=== PATIENT | female | born 1980 | race Hispanic/Latino ===

== ENCOUNTER 2021-03-04 18:19 | Emergency (ER) | payer OTHER ==
[~2021-03-04] VITALS: Ht 157.5 cm; Wt 96.2 kg
[2021-03-04] MEDS ORDERED: IBUPROFEN 800 MG TAB PO ONE (19:00)
[2021-03-04] MEDS ORDERED: ACETAMINOPHEN 500 MG TABLET PO ONE (19:00)
[2021-03-04 19:15] VITALS: BP 126/72
[2021-03-04] MEDS ORDERED: IBUPROFEN 400 MG TABLET ONE (19:15)
[2021-03-04] MEDS ORDERED: ACETAMINOPHEN 500 MG TABLET ONE (19:15)
[2021-03-04] MEDS ORDERED: LISI40TA9 PO (19:46)
[2021-03-04] MEDS ORDERED: GABA-529 PO (19:46)
[2021-03-04] MEDS ORDERED: AMLO-257 PO (19:46)
[2021-03-04] MEDS ORDERED: FURO20TA4 PO (19:46)
== END 2021-03-04 19:59 | disposition home or self-care (01) ==
LOC: EDH 18:19
DX: S00.03XA Contusion of scalp, initial encounter (principal); X58.XXXA Exposure to other specified factors, initial encounter; Y93.89 Activity, other specified; Y92.89 Other specified places as the place of occurrence of the external cause; Y99.8 Other external cause status

== ENCOUNTER 2021-12-26 19:44 | Emergency (ER) | payer OTHER ==
[~2021-12-26] VITALS: Ht 157.5 cm; Wt 104.3 kg
[2021-12-26 19:46] VITALS: BP 119/46
[2021-12-26 20:12] LABS: APPEARANCE,URINE CLOUDY (CLEAR); BILIRUBIN,URINE NEGATIVE (NEGATIVE); COLOR,URINE LIGHT-YELLOW (YELLOW); GLUCOSE, URINE (UA) NEGATIVE (NEGATIVE); KETONES,URINE NEGATIVE (NEGATIVE); LEUKOCYTE ESTERASE ,URINE 250 Leu/uL (NEGATIVE); NITRATE,URINE NEGATIVE (NEGATIVE); OCCULT BLOOD,URINE LARGE (NEGATIVE); PROTEIN,URINE NEGATIVE (NEGATIVE); UROBILINOGEN,URINE 0.2 mg/dL (0.2-1.0)
[2021-12-26 20:15] LABS: BASOPHILS % (AUTO) 0.5 % (0.0-5.0); EOSINOPHILS % (AUTO) 8.3 % (0.0-8.0); HEMATOCRIT 40.9 % (36-48); LYMPHOCYTES % (AUTO) 27.3 % (21.0-51.0); MEAN CORPUSCULAR HEMOGLOBIN 27.5 pg (27.0-33.0); MEAN CORPUSCULAR HGB CONC 32.5 g/dL (32.0-36.0); MEAN CORPUSCULAR VOLUME 84.5 fL (79-99); MONOCYTES % (AUTO) 7.4 % (3.0-13.0); NEUTROPHILS % (AUTO) 56.3 % (40.0-77.0); PLATELET COUNT (AUTO) 418 K/uL (130-400); RED BLOOD CELL COUNT(AUTO) 4.84 MIL/uL (4.00-5.50); RED CELL DISTRIBUTION WIDTH 13.7 % (11.0-15.5); WHITE BLOOD COUNT (AUTO) 10.3 K/uL (4.8-10.8)
[2021-12-26 20:17] LABS: BACTERIA,URINE RARE /HPF (None Seen); HYALINE CASTS, URINE 0-1 /LPF (0-1 /LPF); MUCUS,URINE RARE LPF (None Seen); RBC,URINE 26-50 /HPF (0-1); SQUAMOUS EPITHELIAL CELL,UR MOD /HPF (0-2)
[2021-12-26 20:25] LABS: CREATININE 0.9 mg/dL (0.5-1.5); POTASSIUM 4.1 mmol/L (3.5-5.1)
[2021-12-26] MEDS ORDERED: CEPH500B PO (21:56)
[2021-12-26] MEDS ORDERED: IBUP-2070 PO (21:56)
[2021-12-26] MEDS ORDERED: PHEN-846 PO (21:56)
[2021-12-26] MEDS ORDERED: PHENAZOPYRIDINE HCL 200 MG TABLET PO ONE (22:00)
[2021-12-26] MEDS ORDERED: CEFTRIAXONE 1G VIAL IM ONE (22:00)
== END 2021-12-26 22:09 | disposition home or self-care (01) ==
LOC: EDH 19:44
DX: J06.9 Acute upper respiratory infection, unspecified (principal); N39.0 Urinary tract infection, site not specified; Z20.822 Contact with and (suspected) exposure to COVID-19; Z88.5 Allergy status to narcotic agent; Z90.49 Acquired absence of other specified parts of digestive tract
CPT/HCPCS: 99283; 87635; 80048; 85025; 87088; 87880; 87804 ×2; 81001; 36415; 96372; C9803; J0696

== ENCOUNTER 2022-02-05 14:33 | Emergency (ER) | payer OTHER ==
[~2022-02-05] VITALS: Ht 157.5 cm; Wt 104.3 kg
[~2022-02-05 14:33] MED LIST: CEPH500B PO; IBUP-2070 PO; PHEN-846 PO
[2022-02-05 14:37] VITALS: BP 135/81
[2022-02-05] MEDS ORDERED: FEXO180T94 PO (19:05)
[2022-02-05] MEDS ORDERED: FLUT15.845 NS (19:05)
== END 2022-02-05 19:22 | disposition home or self-care (01) ==
LOC: EDH 14:33
DX: J30.9 Allergic rhinitis, unspecified (principal); Z20.822 Contact with and (suspected) exposure to COVID-19; Z88.6 Allergy status to analgesic agent; Z79.899 Other long term (current) drug therapy; Z90.89 Acquired absence of other organs; Z90.49 Acquired absence of other specified parts of digestive tract; Z98.890 Other specified postprocedural states
CPT/HCPCS: 99283; 87635; 87880; 87804 ×2; C9803

== ENCOUNTER 2024-10-05 11:49 | Emergency (ER) | payer SELFPAY ==
[~2024-10-05] VITALS: Ht 157.5 cm; Wt 101.6 kg
[~2024-10-05 11:49] MED LIST changes: +FEXO180T94 PO; +FLUT15.845 NS
--- NOTE | 2024-10-05 11:56 | ERN ---
ED Note History of Present Illness Stated Complaint: FALL Chief Complaint: Mechanical Fall Time Seen by MD: 11:50 Dictation: PATIENT IS A 44-YEAR-OLD FEMALE COMING IN TODAY WITH MIDLINE POSTERIOR NECK PAIN WORSE WHEN SHE ROTATES HER HEAD ONSET AFTER A SLIP FALL AND STRIKING THE BACK OF HER NECK ON A WOULD STEP. ADDITIONALLY SHE IS COMPLAINING OF LUMBAR PAIN DIFFUSE, NO MIDLINE SPINE PAIN THERE. NEUROVASCULAR CMS INTACT TO ALL EXTREMITIES. SHE HAS NOT TAKEN ANYTHING PRIOR TO ARRIVAL FOR PAIN. SHE IS NOT ON ANY BLOOD THINNERS NO LOC NO PRATER OR RACCOON SIGN. C-COLLAR WAS PLACED IN TRIAGE. NEUROVASCULAR CMS INTACT TO ALL EXTREMITIES POST PLACEMENT. Allergies: Coded Allergies: hydrocodone (Unverified Allergy, Unknown, 03/04/21) Home Meds Active Scripts Fluticasone Propionate (Fluticasone Propionate) 15.8 Ml [place].susp, 15.8 ML NS BID for allergic for 30 Days, #1 BOTTLE Prov:ANANDA BYRNE 02/05/22 Fexofenadine HCl (Maite Allergy) 180 Mg Tablet, 180 MG PO DAILY for allergic for 30 Days, #30 TAB Prov:ANANDA BYRNE 02/05/22 Ibuprofen (Ibuprofen) 600 Mg Tablet, 600 MG PO Q6H PRN for PAIN, #15 TAB Prov:FITTINGDIONIP 12/26/21 Phenazopyridine HCl (Pyridium) 100 Mg Tab, 100 MG PO TID, #6 TAB Prov:DIONI MANP 12/26/21 Cephalexin Monohydrate (Keflex) 500 Mg Cap, 500 MG PO QID for 7 Days, #28 CAP Prov:DIONI MANP 12/26/21 Past Medical History Past Medical History: No Pertinent History Surgical History: Appendectomy, Cholecystectomy, Family History: Negative Social History: Negative History: Not Applicable RN Note Reviewed/Agreed w/PFSH: Yes Review of System Dictation CONSTITUTIONAL: NEGATIVE EXCEPT FOR HPI HEAD/FACE: NEGATIVE EXCEPT FOR HPI EENT: NEGATIVE EXCEPT FOR HPI RESPIRATORY: NEGATIVE EXCEPT FOR HPI GASTROINTESTINAL/ABDOMINAL: NEGATIVE EXCEPT FOR HPI GENITOURINARY: NEGATIVE EXCEPT FOR HPI MUSCULOSKELETAL: NEGATIVE EXCEPT FOR HPI MIDLINE POSTERIOR CERVICAL SPINE AND DIFFUSE LUMBAR TENDERNESS. INTEGUMENTARY: NEGATIVE EXCEPT FOR HPI NEUROLOGICAL/PSYCH: NEGATIVE EXCEPT FOR HPI HEMATOLOGIC/LYMPHATIC: NEGATIVE EXCEPT FOR HPI ALL SYSTEMS NEGATIVE, EXCEPT NOTED ABOVE. 13 POINT REVIEW OF SYSTEMS ASSESSED AND ALL NEGATIVE EXCEPT FOR ABOVE. Initial Vital Sign VS Vital Signs Date Time Temp Pulse Resp B/P (MAP) Pulse Ox O2 Delivery O2 Flow Rate FiO2 10/05/24 11:50 97.2 88 18 108/81 99 Room Air 0 10/05/24 13:02 21 Physical Exam Dictation VITAL SIGNS REVIEWED GENERAL APPEARANCE: ALERT, ORIENTED X 3, MODERATE ACUTE DISTRESS, WELL DEVELOPED , NOURISHED. OBESE HEAD AND FACE: NON-TRAUMATIC. EYES: PERRL, PINK CONJUNCTIVAS, EYELID NO TRAUMA, ANTERIOR CHAMBER WITH ARCUS SENILIS. EARS: PINNAS INTACT AND NO SIGNS OF TRAUMA OR ERYTHEMA EAR CANALS CLEAR AND NO DISCHARGE TM NO ERYTHEMA NOSE: NO DISCHARGE, NO BLEEDING. OROPHARYNX: MOUTH NORMAL, TONGUE PINK, PHARYNX CLEAR,NO ERYTHEMA, TONSILS NO EXUDATES, NO ABSCESSES NOTED, MUCOUS MEMBRANE MOIST NECK: SUPPLE, NON-TENDER, NO THYROMEGALY, NO MASSES, NO JVD, NO BRUITS BREAST:DEFERRED CHEST:NO TENDERNESS, NO CREPITUS, NO PARADOXICAL MOVEMENT, NO RETRACTIONS LUNGS:CLEAR, WELL-VENTILATED, SYMMETRIC, NO RALES, NO WHEEZING, NO RHONCHI, NO STRIDOR, GOOD BREATH SOUNDS BILATERALLY HEART: REGULAR RATE, REGULAR RHYTHM, NO MURMUR, NO GALLOPS VASCULAR: NO PERIPHERAL EDEMA, ABDOMEN: SOFT, POSITIVE BOWEL SOUNDS, NONDISTENDED, NO GUARDING, NONTENDER, NO REBOUND, NO MASSES NO HEPATOMEGALY, NO SPLENOMEGALY, NO MONTALVO'S SIGN, NO HERNIAS. RECTAL: DEFERRED GENITAL: DEFERRED NEUROLOGICAL: NORMAL SPEECH, MOTOR FUNCTION INTACT, SENSORY FUNCTION INTACT MUSCULOSKELETAL: MIDLINE POSTERIOR CERVICAL NECK PAIN TENDERNESS WITHOUT STEP- OFF, POSITIVE INCREASED PAIN WITH ROTATION LEFT OR RIGHT. COLLAR PLACED. DIFFUSE LUMBAR PAIN. NEGATIVE STRAIGHT LEG RAISE BILATERALLY 10. EXTREMITIES: NONTENDER, FULL RANGE OF MOTION SKIN: COLOR PINK, DRY, NO TURGOR, NO RASH, NO LACERATIONS, NO ABRASIONS, NO CONTUSIONS. LYMPHATIC: DEFERRED Results (Laboratory/Radiology) Laboratory/Radiology Indication: Midline spine pain with rotational pain after fall. Technique: Noncontrast axial CT of the cervical spine is performed with coronal and sagittal reconstructions. Comparison: No pertinent prior similar studies have been submitted for comparison. Findings: Straightening of the cervical spine is noted. Vertebral body heights are maintained. There is mild narrowing of intervertebral disc space with uncovertebral hypertrophy at C5-C6 level. Left-sided facet hypertrophy is noted at C2-C3 and C5-C6 level. The odontoid process and the posterior elements are intact. No canal or neural foraminal stenosis is noted at any level. Surrounding soft tissues are unremarkable. Impression: No acute fracture or traumatic subluxation. Straightening of the cervical spine could be due to underlying muscular spasm. /[place] Indication: Midline spinal pain with rotational pain after fall. Technique: Radiograph of the lumbar spine, 3 views. Comparison: No pertinent prior similar studies have been submitted for comparison. Findings: No fracture or subluxation is noted. Straightening of the lumbar spine is noted. Vertebral body heights are maintained. Narrowing of intervertebral disc space with Schmorl's node and osteophytic spurring is noted at T12-L1 and L2-L3 level. No soft tissue swelling is seen. Cholecystectomy clips are noted. Impression: Degenerative changes. /[place] Labs Reviewed?: Yes ED Course ED Course Orders Procedure Category Date Status Time C-Collar [place] 10/05/24 In Process 11:52 Lumbar Spine 2-3vws RAD 10/05/24 Resulted 11:52 Ct Cervical Spine W/O CT 10/05/24 Resulted Contrast 11:52 Cyclobenzaprine Hcl PHA 10/05/24 Complete (Cyclobenzaprine Hcl 12:00 Ketorolac 60mg/2ml PHA 10/05/24 Complete (Toradol 60mg/2ml) 12:00 Ondansetron 4mg PHA 10/05/24 Complete Tablet (Zofran 4mg 13:30 Current Medications Medications (Trade) Dose Ordered Sig/Vijaya Route PRN Reason Start Time Stop Time Status Last Admin Dose Admin Cyclobenzaprine HCl (Cyclobenzaprine HCl) 10 mg ONCE ONCE PO 10/05/24 12:00 10/05/24 12:01 DC 10/05/24 12:45 Ketorolac Tromethamine (toRADol 60MG/ 2ML) 60 mg ONCE ONCE IM 10/05/24 12:00 10/05/24 12:01 DC 10/05/24 12:45 Ondansetron HCl (zoFRAN 4MG TABLET) 4 mg ONCE ONCE PO 10/05/24 13:30 10/05/24 13:31 DC 10/05/24 13:27 Vital Signs Date Time Temp Pulse Resp B/P (MAP) Pulse Ox O2 Delivery O2 Flow Rate FiO2 10/05/24 13:02 98.1 83 18 136/69 99 Room Air* 0 21 10/05/24 11:50 97.2 88 18 108/81 99 Room Air 0 1350/CAT SCAN C-SPINE NEGATIVE, LUMBAR X-RAY NEGATIVE EXCEPT FOR DEGENERATIVE CHANGES. C-COLLAR REMOVED BY MATCH UP PERSON, NEUROVASCULAR CMS INTACT TO ALL EXTREMITIES POST REMOVAL. Medical Decision Making MDM MEDICAL DISCHARGE MAKING BASED ON CT OF THE NECK AND LUMBAR SPINE X-RAYS STATUS POST FALL. CT OF THE NECK NEGATIVE LUMBAR X-RAY DEMONSTRATES DEGENERATIVE CHANGES ONLY. PATIENT DISCHARGED HOME NEUROLOGICALLY INTACT ALL EXTREMITIES GIVEN INSTRUCTIONS TO FOLLOW UP WITH HER PRIMARY CARE DOCTOR FOR FOLLOW UP AND MANAGEMENT DX & DISP Disposition: Discharge Departure Impression: Primary Impression: Acute cervical myofascial strain Additional Impressions: Back contusion, Degenerative joint disease (DJD) of lumbar spine, Fall Condition: Stable Scripts Ibuprofen (Ibuprofen 800 mg Tab) 800 Mg Tab 800 MG PO Q8H PRN for fever or pain, #30 TAB 0 Refills Prov: HUNTER MCCLOUD NP 10/05/24 Cyclobenzaprine HCl (Cyclobenzaprine HCl) 10 Mg Tablet 1 TAB PO TID for muscle spasms for 10 Days, #30 TAB 0 Refills Prov: HUNTER MCCLOUD RESPIRATORY THERAPIST 10/05/24 Additional Instructions: FOLLOW-UP WITH PRIMARY CARE PROVIDER IN 1 TO 2 DAYS. TAKE MEDICATIONS DIRECTED HERE IN THE EMERGENCY ROOM. OKAY TO CONTINUE HOME MEDICATIONS UNLESS OTHERWISE DISCUSSED DURING YOUR VISIT IN THE EMERGENCY ROOM TODAY. RETURN TO YOUR NEAREST EMERGENCY ROOM IF SYMPTOMS WORSEN OR IF THERE IS NO IMPROVEMENT. CALL 911 IF YOU NEED IMMEDIATE ASSISTANCE. TAKE TYLENOL OR MOTRIN [id number] NEEDED AND IF NO CONTRAINDICATIONS ARE PRESENT. INCREASE ORAL HYDRATION. A WOUND CULTURE OR URINE CULT[facility] PLEASE FOLLOW-UP WITH PRIMARY CARE PROVIDER AND ADVISE THEM TO GET REPEAT PORTS FROM OUR FACILITY. IF YOU HAD ANY RIA WRAP/SPLINTS THAT WERE APPLIED HERE, PLEASE DO NOT REMOVE THEM UNTIL YOU SEE YOUR PRIMARY CARE OR SPECIALTY. COOL COMPRESSES TO PAIN THREE TO 4 TIMES A DAY. TAKE IBUPROFEN AND FLEXERIL EVERY 8 HOURS WITH FOOD FOR THE NEXT THREE DAYS. TAKE FLEXERIL ONLY AT NIGHT IF TOO SEDATING. FOLLOW UP WITH YOUR PRIMARY CARE DOCTOR FOR MANAGEMENT IN THE NEXT 1-2 DAYS. Referrals: SELF,REFERRAL (PCP) Time of Disposition: 13:51 I have reviewed the case, and I agree with, Diagnosis and Plan HUNTER MCCLOUD RESPIRATORY THERAPIST Oct 05, 2024 11:56
--- NOTE | 2024-10-05 11:57 | NUR ---
C-COLLAR APPLIED IN TRIAGE
[2024-10-05] MEDS: ketOROlac 60 MG VIAL (30MG/ML) IM ONE (12:45)
[2024-10-05] MEDS: CYCLOBENZAPRINE HCL 10 MG TABLET PO ONE (12:45)
[2024-10-05 13:02] VITALS: BP 136/69; PULSE 83; RESP 18; TEMP 98.1; O2SAT 99
[2024-10-05] MEDS: ondanSETRON 4MG TABLET PO ONE (13:27)
--- NOTE | 2024-10-05 13:31 | HMCIMG ---
Indication: Midline spine pain with rotational pain after fall. Technique: Noncontrast axial CT of the cervical spine is performed with coronal and sagittal reconstructions. Comparison: No pertinent prior similar studies have been submitted for comparison. Findings: Straightening of the cervical spine is noted. Vertebral body heights are maintained. There is mild narrowing of intervertebral disc space with uncovertebral hypertrophy at C5-C6 level. Left-sided facet hypertrophy is noted at C2-C3 and C5-C6 level. The odontoid process and the posterior elements are intact. No canal or neural foraminal stenosis is noted at any level. Surrounding soft tissues are unremarkable. Impression: No acute fracture or traumatic subluxation. Straightening of the cervical spine could be due to underlying muscular spasm. /[place]
--- NOTE | 2024-10-05 13:31 | HMCIMG ---
Indication: Midline spinal pain with rotational pain after fall. Technique: Radiograph of the lumbar spine, 3 views. Comparison: No pertinent prior similar studies have been submitted for comparison. Findings: No fracture or subluxation is noted. Straightening of the lumbar spine is noted. Vertebral body heights are maintained. Narrowing of intervertebral disc space with Schmorl's node and osteophytic spurring is noted at T12-L1 and L2-L3 level. No soft tissue swelling is seen. Cholecystectomy clips are noted. Impression: Degenerative changes. /[place]
[2024-10-05] MEDS ORDERED: IBUP-2077 PO (13:52)
[2024-10-05] MEDS ORDERED: CYCL-309 PO (13:52)
--- NOTE | 2024-10-05 14:04 | NUR ---
UNABLE TO DEPART DUE TO REGISTRATION PROCESS
== END 2024-10-05 14:04 | disposition home or self-care (01) ==
LOC: EDH 11:49
DX: S16.1XXA Strain of muscle, fascia and tendon at neck level, initial encounter (principal); S20.229A Contusion of unspecified back wall of thorax, initial encounter; M47.816 Spondylosis without myelopathy or radiculopathy, lumbar region; Z88.5 Allergy status to narcotic agent; Z79.899 Other long term (current) drug therapy; Z90.49 Acquired absence of other specified parts of digestive tract; W18.39XA Other fall on same level, initial encounter; Y93.89 Activity, other specified; Y92.89 Other specified places as the place of occurrence of the external cause; Y99.8 Other external cause status
CPT/HCPCS: 99285; 72125; 72100; 96372; Q0162; J1885